=== PATIENT | female | born 1995 | race Caucasian/White ===

== ENCOUNTER → 2016-11-24 | Outpatient (CLI) | payer OTHER ==
[~2016-11-24] MED LIST: LEVOIUD IU; OXYC1TAB3 PO
--- NOTE | 2016-11-24 13:16 | MAMMOGRAPHY REPORT ---
ULTRASOUND OF LEFT BREAST: 11/24/2016 CLINICAL HISTORY: The patient with a palpable tender lump in her left breast for approximately one w [place]. Since she first felt it, the lump has become less tender and smaller in size (she feels that t he lump is half the size that it was when she first felt it). COMPARISON: No prior exams were available for comparison. TECHNIQUE: Real-time targeted ultrasound of the left breast was performed. FINDINGS: Real-time, high resolution targeted ultrasound was performed of the area of the palpable lump pointed out by the patient, and the left breast at approximately 12:00, 5 cm from the nipple. Sonographically normal tissue is seen at the site of the palpable lump, without a discrete cystic or solid mass seen. Normal appearing dense fibroglandular tissue is seen in this region, which could account for the palpable finding. IMPRESSION: ACR BI-RADS CATEGORY 2: BENIGN No sonographic abnormality at the site of the palpable left breast lump. There is no sonographic ev idence of malignancy. Given that the lump is clinically decreased in size per the patient, it is li aida benign. Recommend clinical follow-up; consider fine-needle aspiration by the pathology departm ent if the lump does not resolve or increases in size. The patient was verbally notified of the results. Michelle Betancourt M.D. /:11/24/2016 09:09:33 [employer] Driver: Laura GARDNER)([place]), [facility] letter sent: Normal 1/2 BI-RADS Code: ACR BI-RADS Category 2: Benign
== END | disposition home or self-care (01) ==
LOC: C.MAMM 08:41
PROVIDERS: ATTEND Obstetrics & Gynecology
DX: N63 Unspecified lump in breast (principal)